=== PATIENT | male | born 1965 | race Caucasian/White ===

== ENCOUNTER 2018-04-25 18:49 | Emergency (ER) | payer MEDICAID ==
[~2018-04-25] VITALS: Ht 162.6 cm; Wt 68.2 kg
[2018-04-25 18:50] VITALS: TEMP 97.6
[2018-04-25 19:19] LABS: BASO % 0.3 % (0.0-2.0); EOS # 0.1 (0.0-0.7); EOS % 1.4 % (0-4.0); GRAN # 4.4 (1.4-6.5); HEMATOCRIT 41.3 % (42.0-52.0); HEMOGLOBIN 14.3 g/dl (13.5-18.0); LYMPH # 3.8 (1.2-3.4); LYMPH % 40.8 % (20.0-51.0); MEAN CELL VOLUME 86 fl (80.0-100.0); MEAN CORPUSCULAR HEMOGLOBIN 30 pg (27.0-31.0); MEAN CORPUSCULAR HGB CONC 35 g/dl (33.0-37.0); MEAN PLATELET VOLUME 9.1 fl (7.4-10.4); MONO % 10.3 % (1.7-9.3); PLATELET COUNT 241 K/mm3 (130-400); RED BLOOD COUNT 4.78 M/mm3 (4.20-5.60); REDCELL DISTRIBUTION WIDTH-CV 14.4 % (11.5-14.5)
[2018-04-25] MEDS ORDERED: PRINIVIL40 MG PO (19:25)
[2018-04-25] MEDS ORDERED: NEURONTIN100 MG/CAP PO (19:26)
[2018-04-25] MEDS ORDERED: ASPIRIN 81M81 MG/TA2 PO (19:26)
[2018-04-25] MEDS ORDERED: LOPRESSOR 225 MG/TAB PO (19:26)
[2018-04-25 19:29] LABS: ALANINE AMINOTRANSFERASE 54 U/L (21-72); ALBUMIN 3.5 gm/dL (3.5-5.0); ALCOHOL(ethanol),MEDICAL 210 mg/dL; ALKALINE PHOSPHATASE 92 U/L (50-136); ANION GAP 12 mmol/L (7-16); AST,SGOT 66 U/L (15-37); BILIRUBIN,TOTAL 0.6 mg/dL (0.0-1.0); BLOOD UREA NITROGEN 12 mg/dL (9-20); CALCIUM 7.8 mg/dL (8.4-10.2); CARBON DIOXIDE 21 mmol/L (22-30); CHLORIDE 111 mmol/L (98-107); CREATINE KINASE 153 U/L (55-170); GLUCOSE 63 mg/dL (74-106); LIPASE 103 U/L (23-300); POTASSIUM 3.1 mmol/L (3.4-5.0); SODIUM 145 mmol/L (137-145); TOTAL PROTEIN 6.5 gm/dL (6.4-8.2)
[2018-04-25 19:43] LABS: TROPONIN-I < 0.012 ng/mL (0.000-0.034)
[2018-04-25 21:11] VITALS: BP 131/78; PULSE 79
== END 2018-04-25 21:11 | disposition home or self-care (01) ==
LOC: COL.ER 18:49 → EDBD 18:49 → COL.ER 21:11
PROVIDERS: Emergency Medicine
DX: E16.2 Hypoglycemia, unspecified (principal); F10.10 Alcohol abuse, uncomplicated; K86.0 Alcohol-induced chronic pancreatitis; E08.9 Diabetes mellitus due to underlying condition without complications; I10 Essential (primary) hypertension; F17.210 Nicotine dependence, cigarettes, uncomplicated; Z79.82 Long term (current) use of aspirin; Z90.49 Acquired absence of other specified parts of digestive tract; Y90.7 Blood alcohol level of 200-239 mg/100 ml
CPT/HCPCS: C9113; J7030